=== PATIENT | female | born 1950 | race Caucasian/White ===

== ENCOUNTER 2025-03-19 10:33 | Day surgery (SDC) | payer MEDICARE ==
[2025-03-19] VITALS (9 sets, daily range): BP systolic 112–174; BP diastolic 52–93; PULSE 61–85; RESP 15–18; TEMP 98.3; O2SAT 99–100
[~2025-03-19] VITALS: Ht 165.1 cm; Wt 105.3 kg
[~2025-03-19 10:33] MED LIST: ALEN10TA27 PO; APIX5TAB3 PO; ASCO100031 PO; CHOL500044 PO; FERR-116 PO; LEVO75TA PO; LISI-222 PO; LOP25T PO; METF-436 PO; SEMA2PEN SUBCUT
[2025-03-19] MEDS ORDERED: normal saline 1000ml 1,000 ML IV SCH (11:40)
[2025-03-19] MEDS ORDERED: EMMA (11:44)
[2025-03-19] MEDS: MIDAZolam 1mg/ml 10ml vial IV ONE (12:43)
[2025-03-19] MEDS: fentaNYL/PF 50MCG/1 ML 2ML syringe IV ONE (12:43)
--- NOTE | 2025-03-19 19:57 | CARDIOLOGY REPORT ---
APPROVED REPORT EXAM: Intraoperative transesophageal 2D, spectral and color flow Doppler echocardiogram. Study conta ins pre- and post-op images. Patient Location: OUT-PATIENT / Recovery Blood Pressure: 165 /93 mmHg Heart Rate: 85-107 bpm Rhythm: ATRIAL FIBRILLATION Indications POST WATCHMAN FLX LILLIAN CLOSURE DEVICE IMPLANTATION FOLLOW UP EVALUATE DEVICE FOR THROMBUS, POSITION, AND SEAL 27mm WATCHMAN FLX LILLIAN CLOSURE DEVICE 02/07/25 [facility] PROBE PASSED BY: Handy AGUILERA MD Sales Consultant Insurance: Handy Aguilera MD Previous echo: 02/08/25 [facility] EF: 68%; nlLV SZ/FX; sevBAE; smLtoR transseptal; modMAC; mMR; modTR; noP E LEFT VENTRICLE Normal LV size and function. Mild concentric hypertrophy. LVEF is 65%. RIGHT VENTRICLE RV is normal size and function. ATRIA Left atrium is severely dilated. Right atrium is severely dilated. Bowed interatrial septum without L to R shunt s/p transseptal puncture. Left upper pulmonary vein identified. Successfully occluded lef t atrial appendage with well visualized Watchman device well positioned without thrombus. No residual flow detected around device in all views. PERICARDIUM Normal pericardium. No effusion. CONCLUSION Normal LV size and function. Mild concentric hypertrophy. LVEF is 65%. RV is normal size and function . Left atrium is severely dilated. Right atrium is severely dilated. Bowed interatrial septum without L to R shunt s/p transseptal puncture. Left upper pulmonary vein identified. Successfully occluded l eft atrial appendage with well visualized Watchman device well positioned without thrombus. No residu al flow detected around device in all views. Normal pericardium. No effusion. Conclusion Normal LV size and function. Mild concentric hypertrophy. LVEF is 65%. RV is normal size and function. Left atrium is severely dilated. Right atrium is severely dilated. Bowed interatrial septum without L to R shunt s/p transseptal punct ure. Left upper pulmonary vein identified. Successfully occluded left atrial appendage with well vi sualized Watchman device well positioned without thrombus. No residual flow detected around device i n all views. Normal pericardium. No effusion.
== END 2025-03-19 13:05 | disposition home or self-care (01) ==
LOC: SSTAY O 10:33 → EDSTATUS 12:30 → SSTAY O 13:05
PROVIDERS: ATTEND Student in an Organized Health Care Education/Training Program
DX: I48.91 Unspecified atrial fibrillation (principal); E11.9 Type 2 diabetes mellitus without complications; G47.33 Obstructive sleep apnea (adult) (pediatric); E03.9 Hypothyroidism, unspecified; I11.0 Hypertensive heart disease with heart failure; I50.9 Heart failure, unspecified; Z79.899 Other long term (current) drug therapy
CPT/HCPCS: 82948; 93312; 93325; 94760; J2250; J3010; J7030